=== PATIENT | female | born 1945 | race Caucasian/White ===

== ENCOUNTER → 2016-07-14 | Day surgery (SDC) | payer MEDICARE, OTHER ==
[~2016-07-14] VITALS: Ht 162.6 cm; Wt 76.7 kg
[~2016-07-14] MED LIST: ATIVAN1 MG PO; AZOR 5-40 MG T1 EACH PO; BENICAR40 MG PO; BYSTOLIC10 MG PO; CHILDRENS CHEWA81 MG PO; HYDROCODON-ACE1 EAC4 PO; MIRALAX17 GM PO; NEXIUM40 MG PO; PEPCID20 MG PO; PERCOCET 5-3251 EACH PO; SYNTHROID25 MCG PO; TYLENOL325 M1 PO; VITAMIN E400 UNI2 PO; VITAMIN E400 UNI4 PO; ZOCOR20 MG PO
== END ==
LOC: OPS 07:47
PROC: 0FT44ZZ Resection of Gallbladder, Percutaneous Endoscopic Approach (ICD-10-PCS; principal; 2016-07-14)
DX: K80.10 Calculus of gallbladder with chronic cholecystitis without obstruction (principal); R19.8 Other specified symptoms and signs involving the digestive system and abdomen; R11.0 Nausea; R10.11 Right upper quadrant pain; D64.9 Anemia, unspecified; F41.9 Anxiety disorder, unspecified; C18.0 Malignant neoplasm of cecum; K59.00 Constipation, unspecified; E11.9 Type 2 diabetes mellitus without complications; K57.30 Diverticulosis of large intestine without perforation or abscess without bleeding; R60.9 Edema, unspecified; R53.83 Other fatigue; K21.9 Gastro-esophageal reflux disease without esophagitis; K76.89 Other specified diseases of liver; K44.9 Diaphragmatic hernia without obstruction or gangrene; E78.5 Hyperlipidemia, unspecified; I10 Essential (primary) hypertension; E05.90 Thyrotoxicosis, unspecified without thyrotoxic crisis or storm; M81.0 Age-related osteoporosis without current pathological fracture; R91.1 Solitary pulmonary nodule; Z90.710 Acquired absence of both cervix and uterus; Z90.49 Acquired absence of other specified parts of digestive tract; I38 Endocarditis, valve unspecified; Z88.1 Allergy status to other antibiotic agents; Z88.8 Allergy status to other drugs, medicaments and biological substances; Z88.0 Allergy status to penicillin; Z79.899 Other long term (current) drug therapy; Z79.82 Long term (current) use of aspirin; Z79.1 Long term (current) use of non-steroidal anti-inflammatories (NSAID)
CPT/HCPCS: 47562; 99070; J2270; J2704; J2710; J3010

== ENCOUNTER 2016-08-26 08:13 | Emergency (ER) | payer MEDICARE, OTHER | END 2016-08-26 08:45 | disposition home or self-care (01) | LOC: ER 08:13 | DX: J32.9 Chronic sinusitis, unspecified (principal); R05 Cough; H92.02 Otalgia, left ear; Z79.899 Other long term (current) drug therapy; Z79.82 Long term (current) use of aspirin | CPT/HCPCS: 99282 ==